=== PATIENT | male | born 1985 | race Caucasian/White ===

== ENCOUNTER 2022-08-29 01:59 | Emergency (ER) | payer BC ==
[2022-08-29 03:42] VITALS: BP 108/68; PULSE 78; RESP 20; TEMP 98.2; BMI 24.3
[2022-08-29] MEDS ORDERED: ACETAMINOPHEN 500 MG TABLET (FP) PO ONE (04:52)
[2022-08-29] MEDS ORDERED: METHOCARBAMOL 500 MG TABLET PO ONE (04:52)
[2022-08-29] MEDS ORDERED: LIDOCAINE 5% TOPICAL PATCH TP ONE (04:52)
[2022-08-29] MEDS ORDERED: ACETAMINOPHEN 325 MG TABLET (FP) ONE (04:57)
[2022-08-29] MEDS ORDERED: LIDOCAINE 5% TOPICAL PATCH ONE (04:57)
[2022-08-29] MEDS ORDERED: METHOCARBAMOL 500 MG TABLET ONE (04:57)
[2022-08-29] MEDS ORDERED: DIPHTH,PERTUSS(ACELL),TET 0.5 ML DISP.SYRIN IM ONE ×2 (05:25→05:38)
[2022-08-29] MEDS ORDERED: LIDOCAINE PATCH REMOVAL MC SCH (22:00)
== END 2022-08-29 06:49 | disposition left against medical advice (07) ==
LOC: JER 01:59
PROC: 3E0234Z Introduction of Serum, Toxoid and Vaccine into Muscle, Percutaneous Approach (ICD-10-PCS; principal; 2022-08-29)
DX: R68.84 Jaw pain (principal); Y04.0XXA Assault by unarmed brawl or fight, initial encounter; Y92.9 Unspecified place or not applicable
CPT/HCPCS: 90715; 99283-25